=== PATIENT | male | born 1995 | race Caucasian/White ===

== ENCOUNTER 2018-07-21 14:40 | Emergency (ER) | payer SELFPAY ==
[~2018-07-21] VITALS: Ht 172.7 cm; Wt 63.4 kg
[2018-07-21 14:59] VITALS: Ht 172.7 cm; Wt 63.4 kg
[2018-07-21 16:00] VITALS: BP 128/87
== END 2018-07-21 16:00 | disposition home or self-care (01) ==
LOC: D.ER 14:40
DX: Z77.128 Contact with and (suspected) exposure to other hazards in the physical environment (principal)

== ENCOUNTER 2018-07-21 21:12 | Emergency (ER) | payer SELFPAY ==
[~2018-07-21] VITALS: Ht 172.7 cm; Wt 63.5 kg
[2018-07-21 21:17] VITALS: Ht 172.7 cm; Wt 63.5 kg
[2018-07-21 23:42] VITALS: BP 123/78
== END 2018-07-21 23:44 | disposition home or self-care (01) ==
LOC: D.ER 21:12
DX: Z20.3 Contact with and (suspected) exposure to rabies (principal); F17.200 Nicotine dependence, unspecified, uncomplicated